=== PATIENT | female | born 1995 | race Hispanic/Latino ===

== ENCOUNTER 2023-09-01 13:18 | Outpatient (CLI) | payer OTHER | END 2023-09-01 13:19 | disposition home or self-care (01) | LOC: CSHULT 13:18 | PROVIDERS: ATTEND Advanced Practice Midwife | DX: Z34.82 Encounter for supervision of other normal pregnancy, second trimester (principal); Z3A.26 26 weeks gestation of pregnancy | CPT/HCPCS: 76805 ==

== ENCOUNTER 2023-11-14 11:04 | Day surgery (SDC) | payer OTHER ==
[2023-11-14 11:37] VITALS: BMI 25.1
[2023-11-14] MEDS ORDERED: hydrALAZINE 20 MG/ML VIAL SLOW IVP PRN (11:51)
== END 2023-11-14 13:52 | disposition home or self-care (01) ==
LOC: CSHLD/OP 11:04
PROVIDERS: ATTEND Family Medicine
DX: O47.1 False labor at or after 37 completed weeks of gestation (principal); O00.01 Abdominal pregnancy with intrauterine pregnancy; Z79.899 Other long term (current) drug therapy; Z3A.40 40 weeks gestation of pregnancy
CPT/HCPCS: 99283

== ENCOUNTER 2023-11-14 20:02 | Inpatient (IN) | payer OTHER ==
[2023-11-14] MEDS ORDERED: fentaNYL 50 mcg/mL 1 mL Vial SLOW IVP PRN (20:37)
[2023-11-14] MEDS ORDERED: Methylergonovine 0.2 MG/ML VIAL IM PRN (20:37)
[2023-11-14] MEDS ORDERED: HYDROcodone/Acetaminophen 5/325 mg Tablet PO PRN ×2 (20:37→23:16)
[2023-11-14] MEDS ORDERED: Promethazine HCl 25 MG/ML VIAL IM PRN (20:37)
[2023-11-14] MEDS ORDERED: Diphenoxylate HCl/Atropine Tablet PO PRN (20:37)
[2023-11-14] MEDS ORDERED: Misoprostol 200 MCG TAB PR PRN (20:37)
[2023-11-14] MEDS ORDERED: Tranexamic Acid 1,000 MG/10 ML VIAL IVP PRN (20:37)
[2023-11-14] MEDS ORDERED: Carboprost 250 MCG/ML AMP IM PRN (20:37)
[2023-11-14] MEDS ORDERED: Ondansetron PF 4 MG/2 ML Vial IVP PRN ×2 (20:37→23:16)
[2023-11-14] MEDS ORDERED: hydrALAZINE 20 MG/ML VIAL SLOW IVP PRN ×2 (20:37→23:16)
[2023-11-14] MEDS ORDERED: Lactated Ringer's 1,000 ML IV SCH (20:45)
[2023-11-14 20:46] VITALS: BMI 25.1
[2023-11-14] MEDS: Ibuprofen 800 MG TAB PO PRN (21:00)
[2023-11-14] MEDS: Oxytocin 30 units/NS 500 ML 500 ML IV SCH (21:00)
[2023-11-14] MEDS: Lidocaine 1% (PF) 30 ML VIAL SC PRN (21:00)
[2023-11-14 21:01] LABS: Hemoglobin 17.5 g/dL (12.0-15.5); Mean Corpuscular HGB CONC 34.3 g/dL (32.0-36.0); Mean Corpuscular Hemoglobin 31.7 pg (27.0-33.0); Mean Corpuscular Volume 92.4 fL (81.6-98.3); Mean Platelet Volume 9.9 fL (7.4-10.4); Platelet Count 153 10x3/uL (150-450); RBC Distribution Width 14.3 % (11.5-14.5); Red Blood Cell (RBC) Count 5.52 10x6/uL (3.90-5.03); White Blood Cell (WBC) Count 12.2 10x3/uL (3.5-10.5)
[2023-11-14 21:15] LABS: HBsAg Index 0.18 S/CO (0-0.99); Hep B Surf Ag - L&D Non-Reactive S/CO (NonReactive); Syphilis Antibody Nonreactive (Nonreactive); Syphilis Antibody Index 0.04 S/CO (<1.00 Non-Reactive)
[2023-11-14] MEDS ORDERED: Lanolin Ointment 7 GM TUBE TOP PRN (23:16)
[2023-11-14] MEDS ORDERED: Oxytocin 30 units/NS 500 ML 500 ML IV SCH (23:16)
[2023-11-14] MEDS ORDERED: Bisacodyl 10 MG SUPP PR PRN (23:16)
[2023-11-14] MEDS ORDERED: Milk Of Magnesia 30 ML UDCUP PO PRN (23:16)
[2023-11-14] MEDS ORDERED: Boostrix 0.5 ML (Tdap) VIAL (>/=7 yrs of age) IM ONE (23:16)
[2023-11-14] MEDS ORDERED: diphenhydrAMINE 25 MG CAP PO PRN (23:16)
[2023-11-15] MEDS: Oxytocin 30 units/NS 500 ML 500 ML ONE (05:09)
[2023-11-15] MEDS: Lidocaine 1% (PF) 30 ML VIAL ONE (05:09)
[2023-11-15] MEDS: Docusate 100 MG CAP PO SCH ×2 (05:09→07:33)
[2023-11-15] MEDS: Ibuprofen 800 MG TAB PO SCH (05:27)
[2023-11-15] MEDS: Benzocaine-Menthol 82.5 ML CAN TOP PRN (05:27)
[2023-11-15] MEDS: Prenatal Vitamin 1 TAB PO SCH (07:33)
[2023-11-15] MEDS: Ferrous Sulfate 325 MG TAB PO SCH (21:35)
[2023-11-16 08:19] VITALS: BP 106/70; TEMP 97.9
== END 2023-11-16 12:15 | disposition home or self-care (01) | DRG 806 ==
LOC: CSHLD/OP 20:02 → CSHLD 20:42 → CSHPED 23:23
PROVIDERS: ADMIT Family Medicine; ATTEND Family Medicine
PROC: 10E0XZZ Delivery of Products of Conception, External Approach (ICD-10-PCS; principal; 2023-11-14)
PROC: 0KQM0ZZ Repair Perineum Muscle, Open Approach (ICD-10-PCS; 2023-11-14)
DX: O42.013 Preterm premature rupture of membranes, onset of labor within 24 hours of rupture, third trimester (principal); O00.01 Abdominal pregnancy with intrauterine pregnancy; Z37.0 Single live birth; Z3A.36 36 weeks gestation of pregnancy; O70.1 Second degree perineal laceration during delivery; Z79.899 Other long term (current) drug therapy
CPT/HCPCS: 36415; 85027; 86780; 86850; 86900; 86901; 87340; 99283; 99285; J2001; J2590